=== PATIENT | female | born 2000 | race Caucasian/White ===

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

== ENCOUNTER 2022-11-22 21:48 | Emergency (ER) | payer BC, OTHER ==
[~2022-11-22] VITALS: Ht 172.7 cm; Wt 75.0 kg
[2022-11-22 21:51] VITALS: TEMP 98.6; O2SAT 99
[2022-11-23 02:45] VITALS: BP 105/60
[2022-11-23] MEDS ORDERED: HOLTER MONITOR XX (03:08)
== END 2022-11-23 03:19 | disposition home or self-care (01) ==
LOC: M ED 21:48
DX: R00.2 Palpitations (principal)

== ENCOUNTER → 2022-11-24 | Outpatient (CLI) | payer OTHER ==
[~2022-11-24] MED LIST: HOLTER MONITOR XX
== END ==
LOC: M EKG 11:43
PROVIDERS: ATTEND Emergency Medicine
DX: R00.2 Palpitations (principal)